=== PATIENT | female | born 1985 | race Caucasian/White ===

== ENCOUNTER 2017-06-13 16:32 | Emergency (ER) | payer OTHER ==
[~2017-06-13] VITALS: Ht 152.4 cm; Wt 88.5 kg
== END 2017-06-14 00:27 | disposition home or self-care (01) ==
LOC: ER 16:32
DX: R51 Headache (principal)

== ENCOUNTER 2020-10-04 02:38 | Emergency (ER) | payer OTHER ==
[~2020-10-04] VITALS: Ht 152.4 cm; Wt 79.4 kg
== END 2020-10-04 05:45 | disposition home or self-care (01) ==
LOC: ER 02:38
DX: K29.70 Gastritis, unspecified, without bleeding (principal)